=== PATIENT | female | born 1945 | race Caucasian/White ===

== ENCOUNTER 2019-05-02 06:18 | Inpatient (IN) ==
[2019-05-02] MEDS ORDERED: 0.9 % Sodium Chloride 1,000 ML IVC ONE (06:37)
[2019-05-02 06:47] LABS: Basophils % 0.6 %; Eosinophils # 0.4 K/mcL (0.0-0.6); Eosinophils % 5.3 %; Hematocrit 41.1 % (35.3-44.9); Hemoglobin 14.9 g/dL (11.5-15.4); Immature Granulocytes % 0.1 % (0-4); Lymphocytes # 2.4 K/mcL (0.6-4.6); Lymphocytes % 34.4 %; Mean Corpuscular HGB Conc 36.3 g/dL (31.6-35.5); Mean Corpuscular Hemoglobin 31.6 pg (28.0-33.3); Mean Corpuscular Volume 87.3 fL (83.0-100.0); Mean Platelet Volume 8.6 fL (9.4-12.4); Monocytes # 0.5 K/mcL (0.0-1.3); Monocytes % 7.2 %; Neutrophils # 3.7 K/mcL (1.6-8.9); Platelet Count 205 K/mcL (140-400); Red Blood Count 4.71 M/mcL (3.82-4.97); Red Cell Distribution Width 12.2 % (11.5-14.5); Segmented Neutrophils % 52.4 %
[2019-05-02 06:50] LABS: Bilirubin,Urine Negative (Negative); Blood,Urine Negative (Negative); Clarity,Urine Cloudy (Clear); Color,Urine Yellow (Yellow); Glucose,Urine (UA) Normal (Normal); Ketones,Urine Negative (Negative); Leukocyte Esterase,Urine Small (Negative); Nitrite,Urine Negative (Negative); Protein,Urine Negative (Neg-Trace); Specific Gravity,Urine 1.019 (1.010-1.025); Urobilinogen,Urine Normal (Normal)
[2019-05-02 06:55] LABS: Bacteria,Urine Few per hpf (None-Few); Hyaline Casts,Urine None Seen per lpf (None-Few); RBC,Urine 0-3 per hpf (0-3); Squamous Epithelial Cell,Urine Many per lpf (None-Few)
[2019-05-02 07:08] LABS: Alanine Aminotransferase 21 Units/L (7-52); Albumin 4.1 g/dL (3.5-5.7); Albumin/Globulin Ratio 2.3 (1.1-2.2); Alkaline Phosphatase 93 Units/L (34-104); Amylase 30 Units/L (29-103); Aspartate Amino Transferase 23 Units/L (13-39); BUN/Creatinine Ratio 19 (6-26); Bilirubin,Direct 0.2 mg/dL (0.0-0.2); Bilirubin,Indirect 0.7 mg/dL (0.0-1.0); Bilirubin,Total 0.9 mg/dL (0.3-1.0); Blood Urea Nitrogen 18 mg/dL (8-23); Calcium 9.4 mg/dL (8.6-10.3); Carbon Dioxide 31 mEq/L (23-29); Chloride 102 mEq/L (98-107); Globulin 1.8 g/dL (2.4-3.5); Glucose 109 mg/dL (70-105); Lipase 16 Units/L (11-82); Osmolality,Calculated 294 (280-300); Potassium 3.3 mEq/L (3.5-5.1); Sodium 141 mEq/L (136-145); Total Protein 5.9 g/dL (6.4-8.9); eGFR For African Americans > 60 (> 60); eGFR For Non-African Americans 59 (> 60)
[2019-05-02] MEDS ORDERED: *HR* FentaNYL (PF) 100 MCG/2 ML VIAL IVP STA (08:29)
[2019-05-02] MEDS ORDERED: Naloxone 0.4 MG/ML INJ IVP PRN (08:41)
[2019-05-02] MEDS ORDERED: *HR* Promethazine 25 MG/ML VIAL IVP PRN (08:41)
[2019-05-02] MEDS ORDERED: Ondansetron ODT 4 MG TAB.RAPDIS SL PRN (09:26)
[2019-05-02] MEDS ORDERED: Ringers Solution, Lactated 1,000 ML ONE (09:35)
[2019-05-02] MEDS: Ringers Solution, Lactated 1,000 ML IVC SCH (10:57)
[2019-05-02] MEDS: Ketorolac 30 MG/ML VIAL IVP PRN (13:07)
[2019-05-03] MEDS: Ringers Solution, Lactated 1,000 ML IVC SCH ×2 (02:07→14:18)
[2019-05-03 06:21] LABS: Basophils % 0.6 %; Eosinophils # 0.4 K/mcL (0.0-0.6); Eosinophils % 6.3 %; Hematocrit 40.2 % (35.3-44.9); Hemoglobin 14.5 g/dL (11.5-15.4); Immature Granulocytes % 0.3 % (0-4); Lymphocytes # 1.7 K/mcL (0.6-4.6); Lymphocytes % 26.2 %; Mean Corpuscular HGB Conc 36.1 g/dL (31.6-35.5); Mean Corpuscular Hemoglobin 31.6 pg (28.0-33.3); Mean Corpuscular Volume 87.6 fL (83.0-100.0); Mean Platelet Volume 8.7 fL (9.4-12.4); Monocytes # 0.5 K/mcL (0.0-1.3); Monocytes % 7.6 %; Neutrophils # 3.7 K/mcL (1.6-8.9); Platelet Count 193 K/mcL (140-400); Red Blood Count 4.59 M/mcL (3.82-4.97); Red Cell Distribution Width 12.4 % (11.5-14.5); White Blood Count 6.3 K/mcL (4.3-11.1)
[2019-05-03 06:40] LABS: BUN/Creatinine Ratio 16 (6-26); Blood Urea Nitrogen 15 mg/dL (8-23); Calcium 9.4 mg/dL (8.6-10.3); Carbon Dioxide 29 mEq/L (23-29); Chloride 106 mEq/L (98-107); Glucose 99 mg/dL (70-105); Osmolality,Calculated 297 (280-300); Potassium 4.2 mEq/L (3.5-5.1); Sodium 143 mEq/L (136-145); eGFR For African Americans > 60 (> 60); eGFR For Non-African Americans > 60 (> 60)
[2019-05-03] MEDS ORDERED: Bisoprolol/HCTZ 5/6.25 TABLET PO SCH (09:00)
[2019-05-03] MEDS ORDERED: BuPROPion XL (24 HR) 150 MG TABLET PO SCH (09:00)
[2019-05-03] MEDS ORDERED: Bisoprolol/HCTZ 10/6.25 TABLET PO SCH (09:00)
[2019-05-03] MEDS ORDERED: Celecoxib 100 MG CAPSULE PO SCH (09:00)
[2019-05-03] MEDS ORDERED: cefTRIAXone 1,000 MG in Water for inj. (sterile) 10 ML IVP ONE (15:00)
[2019-05-03] MEDS ORDERED: *HR* OxyCODONE Immed Rel 5 MG TABLET PO PRN (17:17)
[2019-05-03] MEDS ORDERED: *HR* HYDROmorphone (PF) 1 MG/ML SYRINGE IVP PRN (17:17)
[2019-05-03] MEDS ORDERED: *HR* Promethazine 25 MG/ML VIAL IVP PRN (17:17)
[2019-05-03] MEDS ORDERED: Ondansetron 4 MG/2 ML VIAL IVP ONE (17:17)
[2019-05-03] MEDS ORDERED: Isovue-300 50ML VIAL ONE (17:29)
[2019-05-03] MEDS ORDERED: Lidocaine -MPF 2% 2 ML VIAL ONE (17:51)
[2019-05-03] MEDS ORDERED: Ondansetron 4 MG/2 ML VIAL ONE (17:51)
[2019-05-03] MEDS ORDERED: *HR* Propofol 200 MG/20 ML VIAL IVP ONE (17:51)
[2019-05-03] MEDS ORDERED: *HR* FentaNYL (PF) 100 MCG/2 ML VIAL ONE (17:51)
[2019-05-03] MEDS ORDERED: EPHEDrine 50 MG/ML VIAL ONE (18:13)
[2019-05-03] MEDS ORDERED: *HR* PHENYLEPHRINE 1,000 MCG/10 ML SYRINGE IVP ONE (18:14)
[2019-05-04] MEDS: Ketorolac 30 MG/ML VIAL IVP PRN (01:44)
[2019-05-04] MEDS: Ringers Solution, Lactated 1,000 ML IVC SCH (01:47)
[2019-05-04] MEDS ORDERED: *HR* Promethazine 25 MG/ML VIAL IVP PRN (03:38)
[2019-05-04] MEDS ORDERED: Naloxone 0.4 MG/ML INJ IVP PRN (03:38)
[2019-05-04] MEDS ORDERED: Ketorolac 30 MG/ML VIAL IVP PRN (03:38)
[2019-05-04] MEDS ORDERED: Ringers Solution, Lactated 1,000 ML IVC SCH (03:38)
[2019-05-04 04:47] LABS: Hemoglobin 14.5 g/dL (11.5-15.4); Mean Corpuscular HGB Conc 36.3 g/dL (31.6-35.5); Mean Corpuscular Hemoglobin 31.7 pg (28.0-33.3); Mean Corpuscular Volume 87.5 fL (83.0-100.0); Mean Platelet Volume 8.7 fL (9.4-12.4); Platelet Count 202 K/mcL (140-400); Red Blood Count 4.57 M/mcL (3.82-4.97); Red Cell Distribution Width 12.1 % (11.5-14.5); White Blood Count 9.2 K/mcL (4.3-11.1)
[2019-05-04 05:05] LABS: BUN/Creatinine Ratio 22 (6-26); Blood Urea Nitrogen 17 mg/dL (8-23); Calcium 9.2 mg/dL (8.6-10.3); Carbon Dioxide 23 mEq/L (23-29); Chloride 104 mEq/L (98-107); Glucose 128 mg/dL (70-105); Osmolality,Calculated 283 (280-300); Potassium 4.2 mEq/L (3.5-5.1); Sodium 135 mEq/L (136-145); eGFR For African Americans > 60 (> 60); eGFR For Non-African Americans > 60 (> 60)
[2019-05-04] MEDS ORDERED: Bisoprolol/HCTZ 5/6.25 TABLET PO SCH (09:00)
[2019-05-04] MEDS ORDERED: BuPROPion XL (24 HR) 150 MG TABLET PO SCH (09:00)
[2019-05-04] MEDS ORDERED: Lactobacillus 1 EACH CAP.SPRINK PO SCH ×2 (09:00)
[2019-05-04 09:55] VITALS: BP 117/72
== END 2019-05-04 12:12 | disposition home or self-care (01) | DRG 661 ==
LOC: CDU 06:18 → EMEROOARM 06:18 → SUATTDRO 08:30 → CDU 09:22 → 3ANU 17:54
PROVIDERS: ADMIT Internal Medicine; ATTEND Family Medicine

== ENCOUNTER 2019-05-12 00:02 | Inpatient (IN) ==
[2019-05-12 00:41] LABS: Bilirubin,Urine Negative (Negative); Blood,Urine Moderate (Negative); Clarity,Urine Turbid (Clear); Color,Urine Dark Yellow (Yellow); Glucose,Urine (UA) 100 mg/dL (Normal); Ketones,Urine Trace mg/dL (Negative); Leukocyte Esterase,Urine Large (Negative); Nitrite,Urine Positive (Negative); Protein,Urine 100 mg/dL (Neg-Trace); Specific Gravity,Urine 1.023 (1.010-1.025); Urobilinogen,Urine Normal (Normal)
[2019-05-12 00:42] LABS: Bacteria,Urine Many per hpf (None-Few); Squamous Epithelial Cell,Urine Many per lpf (None-Few); WBC,Urine TNTC per hpf (0-3)
[2019-05-12 01:12] LABS: Basophils % 0.1 %; Eosinophils % 0.1 %; Hematocrit 41.3 % (35.3-44.9); Hemoglobin 14.8 g/dL (11.5-15.4); Immature Granulocytes % 0.8 % (0-4); Lymphocytes # 0.7 K/mcL (0.6-4.6); Lymphocytes % 4.9 %; Mean Corpuscular HGB Conc 35.8 g/dL (31.6-35.5); Mean Corpuscular Volume 89.2 fL (83.0-100.0); Mean Platelet Volume 8.8 fL (9.4-12.4); Monocytes # 1.2 K/mcL (0.0-1.3); Monocytes % 8.2 %; Neutrophils # 12.2 K/mcL (1.6-8.9); Platelet Count 193 K/mcL (140-400); Red Blood Count 4.63 M/mcL (3.82-4.97); Red Cell Distribution Width 12.2 % (11.5-14.5); Segmented Neutrophils % 85.9 %; White Blood Count 14.2 K/mcL (4.3-11.1)
[2019-05-12 01:32] LABS: Albumin 3.7 g/dL (3.5-5.7); Albumin/Globulin Ratio 1.4 (1.1-2.2); Bilirubin,Direct 0.8 mg/dL (0.0-0.2); Bilirubin,Indirect 1.1 mg/dL (0.0-1.0); Bilirubin,Total 1.9 mg/dL (0.3-1.0); Calcium 9.5 mg/dL (8.6-10.3); Globulin 2.6 g/dL (2.4-3.5); Potassium 3.5 mEq/L (3.5-5.1); Total Protein 6.3 g/dL (6.4-8.9)
[2019-05-12] MEDS ORDERED: 0.9 % Sodium Chloride 1,000 ML IVC STA (02:14)
[2019-05-12] MEDS ORDERED: cefTRIAXone 1,000 MG in Water for inj. (sterile) 10 ML IVP ONE (02:14)
[2019-05-12] MEDS ORDERED: Promethazine 12.5 MG in 0.9 % Sodium Chloride 50 ML IVPB ONE (02:15)
[2019-05-12] MEDS ORDERED: *HR* FentaNYL (PF) 100 MCG/2 ML VIAL IVP ONE (02:22)
[2019-05-12] MEDS ORDERED: tiZANidine 4 MG TABLET PO PRN (03:54)
[2019-05-12] MEDS ORDERED: Naloxone 0.4 MG/ML INJ IVP PRN (03:57)
[2019-05-12] MEDS ORDERED: *HR* Promethazine 25 MG/ML VIAL IVP PRN (04:01)
[2019-05-12 06:03] LABS: INR 1.2; Prothrombin Time 13.5 Seconds (9.4-12.1)
[2019-05-12] MEDS: 0.9 % Sodium Chloride 1,000 ML IVC SCH ×2 (07:47→17:37)
[2019-05-12] MEDS: Multivit/Ca/Min/Fe/FA 1 TAB TABLET PO SCH (09:07)
[2019-05-12] MEDS: Aspirin Enteric Coated 81 MG Tablet PO SCH (09:07)
[2019-05-12] MEDS: BuPROPion XL (24 HR) 150 MG TABLET PO SCH (09:07)
[2019-05-12] MEDS: Acetaminophen 325 MG TABLET PO PRN (09:10)
[2019-05-13] MEDS: Acetaminophen 325 MG TABLET PO PRN (02:01)
[2019-05-13 07:42] LABS: Basophils % 0.3 %; Eosinophils # 0.1 K/mcL (0.0-0.6); Eosinophils % 1.2 %; Hematocrit 32.5 % (35.3-44.9); Immature Granulocytes % 0.5 % (0-4); Lymphocytes # 0.6 K/mcL (0.6-4.6); Lymphocytes % 9.7 %; Mean Corpuscular HGB Conc 36.3 g/dL (31.6-35.5); Mean Corpuscular Hemoglobin 32.3 pg (28.0-33.3); Mean Platelet Volume 9.1 fL (9.4-12.4); Monocytes # 0.8 K/mcL (0.0-1.3); Monocytes % 12.8 %; Neutrophils # 4.9 K/mcL (1.6-8.9); Platelet Count 136 K/mcL (140-400); Red Blood Count 3.65 M/mcL (3.82-4.97); Red Cell Distribution Width 12.4 % (11.5-14.5); Segmented Neutrophils % 75.5 %
[2019-05-13 07:46] LABS: Hemoglobin 11.8 g/dL (11.5-15.4); White Blood Count 6.5 K/mcL (4.3-11.1)
[2019-05-13 07:49] LABS: BUN/Creatinine Ratio 27 (6-26); Blood Urea Nitrogen 26 mg/dL (8-23); Calcium 8.3 mg/dL (8.6-10.3); Carbon Dioxide 24 mEq/L (23-29); Chloride 101 mEq/L (98-107); Glucose 114 mg/dL (70-105); Osmolality,Calculated 282 (280-300); Potassium 3.2 mEq/L (3.5-5.1); Sodium 133 mEq/L (136-145); eGFR For African Americans > 60 (> 60); eGFR For Non-African Americans 55 (> 60)
[2019-05-13] MEDS ORDERED: cefTRIAXone 1,000 MG in Water for inj. (sterile) 10 ML IVP SCH (09:00)
[2019-05-13] MEDS: Sucralfate 1 GM TABLET PO SCH ×2 (09:25→21:13)
[2019-05-13] MEDS: Aspirin Enteric Coated 81 MG Tablet PO SCH (09:25)
[2019-05-13] MEDS: BuPROPion XL (24 HR) 150 MG TABLET PO SCH (09:26)
[2019-05-13] MEDS: Multivit/Ca/Min/Fe/FA 1 TAB TABLET PO SCH (09:26)
[2019-05-13] MEDS: Loratadine 10 MG TABLET PO SCH (15:44)
[2019-05-13] MEDS: Ampicillin/Sulbactam 1,500 MG in 0.9 % Sodium Chloride Mini Bag 100 ML IVPB SCH (19:57)
[2019-05-14] MEDS: Ampicillin/Sulbactam 1,500 MG in 0.9 % Sodium Chloride Mini Bag 100 ML IVPB SCH ×3 (01:27→12:26)
[2019-05-14 09:55] VITALS: BP 121/76
[2019-05-14] MEDS: BuPROPion XL (24 HR) 150 MG TABLET PO SCH (10:16)
[2019-05-14] MEDS: Sucralfate 1 GM TABLET PO SCH (10:16)
[2019-05-14] MEDS: Loratadine 10 MG TABLET PO SCH (10:16)
[2019-05-14] MEDS: Multivit/Ca/Min/Fe/FA 1 TAB TABLET PO SCH (10:16)
[2019-05-14] MEDS: Aspirin Enteric Coated 81 MG Tablet PO SCH (10:17)
== END 2019-05-14 14:45 | disposition home or self-care (01) | DRG 690 ==
LOC: 3ANU 00:02 → EMEROOARM 00:02 → SUATTDRO 04:50 → 3ANU 05:45
PROVIDERS: ADMIT Internal Medicine; ATTEND Internal Medicine